=== PATIENT | male | born 1985 | race Caucasian/White ===

== ENCOUNTER 2024-07-11 12:33 | Emergency (ER) | payer MEDICAID ==
[~2024-07-11] VITALS: Ht 185.4 cm; Wt 70.3 kg
[~2024-07-11 12:33] MED LIST: GENT5DRO7 LEFT EYE
[2024-07-11 12:50] VITALS: BP_SYST 146; PULSE 83; RESP 20; TEMP 98.4; O2SAT 97
[2024-07-11] MEDS: MORPHINE 4 MG INJ. 4 MG/ML VIAL IM ONE (13:38)
[2024-07-11 13:49] LABS: BASOPHILS % (AUTO) 0.6 % (0.0-2.0); EOSINOPHILS % (AUTO) 0.5 % (0.0-4.0); HEMATOCRIT 42.4 % (36-54); HEMOGLOBIN 14.8 g/dL (14.0-18.0); LYMPHOCYTES # (AUTO) 1.2 K/uL (1.0-5.5); LYMPHOCYTES % (AUTO) 15.4 % (20.5-51.5); MEAN CORPUSCULAR HEMOGLOBIN 31 pg (27-31); MEAN CORPUSCULAR HGB CONC 35 % (32-36); MEAN CORPUSCULAR VOLUME 88 fL (79.0-98.0); MONOCYTES # (AUTO) 0.4 K/uL (0.0-1.0); NEUTROPHILS # (AUTO) 6.2 K/uL (1.8-7.7); NEUTROPHILS % (AUTO) 78.5 % (40.0-70.0); PLATELET COUNT (AUTO) 274 K/uL (130-430); RED BLOOD CELL COUNT(AUTO) 4.82 MIL/uL (4.2-6.2); RED CELL DISTRIBUTION WIDTH 13.2 % (9.0-15.0); WHITE BLOOD COUNT (AUTO) 7.8 K/uL (4.8-10.8)
[2024-07-11 14:16] LABS: PROTHROMBIN TIME 10.4 SECS (9.5-12.5)
[2024-07-11 14:18] LABS: ALANINE AMINOTRANSFERASE 26 U/L (12-78); ALBUMIN 3.7 g/dL (3.4-4.8); ANION GAP 11 (5-15); ASPARTATE AMINOTRANSFERASE 22 U/L (10-37); BILIRUBIN,DIRECT 0.1 mg/dL (0.0-0.3); CALCIUM 8.7 mg/dL (8.4-11.0); CARBON DIOXIDE 26 mmol/L (23-29); CHLORIDE 103 mmol/L (98-107); CREATINE KINASE, TOTAL 166 U/L (39-308); GFR AFRICAN AMERICAN 106 mL/min (>90); GLUCOSE 95 mg/dL (74-106); POTASSIUM 3.2 mmol/L (3.5-5.1); SODIUM SERUM 140 mmol/L (136-145); TOTAL BILIRUBIN 0.4 mg/dL (0.0-1.0); TOTAL PROTEIN, SERUM 7.2 g/dL (6.4-8.3); UREA NITROGEN, BLOOD 12 mg/dL (8-21)
[2024-07-11 14:19] LABS: GFR NON AFRICAN-AMERICAN 88 mL/min (>90)
[2024-07-11] MEDS ORDERED: NEOM28.37 TP (14:58)
[2024-07-11] MEDS ORDERED: HYDR-3927 PO (14:58)
[2024-07-11] MEDS: BACITRACIN 1 GM OINT TP ONE (15:00)
[2024-07-11 15:15] VITALS: BP_SYST 132; PULSE 76; RESP 18; TEMP 98.4; O2SAT 97
== END 2024-07-11 15:15 | disposition home or self-care (01) ==
LOC: SED 12:33
DX: T22.212A Burn of second degree of left forearm, initial encounter (principal); T22.211A Burn of second degree of right forearm, initial encounter; R00.1 Bradycardia, unspecified; Z79.899 Other long term (current) drug therapy; Z79.2 Long term (current) use of antibiotics; W86.8XXA Exposure to other electric current, initial encounter; Y93.89 Activity, other specified; Y92.89 Other specified places as the place of occurrence of the external cause; Y99.8 Other external cause status
CPT/HCPCS: 99284; 96374; 80076; 80048; 82550; 85025; 85610; 85730; 84484; 36415; 93005; 16000; J2270